=== PATIENT | female | born 1950 | race Caucasian/White ===

== ENCOUNTER 2021-12-10 02:44 | Inpatient (IN) ==
[2021-12-10 04:30] LABS: ABS Basophils 0.1 10^3/ul (0-0.2); ABS Lymphocytes 1.5 10^3/ul (1.0-4.8); ABS Monocytes 0.4 10^3/ul (0-0.8); ABS Neutrophils 3.4 10^3/ul (1.5-7.7); Eosinophil % 0.5 %; Hematocrit 47 % (35-47); Lymphocyte % 27.3 %; Mean Corpuscular HGB Conc 34 g/dL (31-36); Mean Corpuscular Hemoglobin 32 pg (27-31); Mean Corpuscular Volume 94 fL (80-97); Mean Platelet Volume 8.1 fL (7.4-10.4); Nucleated Red Blood Cells % 0.1; Platelet Count 200 10^3/uL (150-450); Red Blood Count 5.07 10^6 /uL (3.70-4.87); Red Cell Distribution Width 14 % (10-15); White Blood Count 5.4 10^3/uL (3.5-10.8)
[2021-12-10 04:35] LABS: INR 1.25 (0.89-1.11)
[2021-12-10 04:38] LABS: Urine Appearance Clear; Urine Blood Negative (Negative); Urine Color Yellow; Urine Glucose Trace (100mg/dL) (Negative); Urine Ketones Trace (Negative); Urine Nitrite Negative (Negative); Urine Protein 1+ (30 mg/dL) (Negative); Urine Specific Gravity 1.025 (1.002-1.030); Urine Urobilinogen 0.2 (Negative) (Negative); Urine pH 5.5 (5.0-9.0)
[2021-12-10 04:48] LABS: Urine Benzodiazepine Screen None Detected (None Detect); Urine Cannabinoids Screen None Detected (None Detect); Urine Opiates Screen None Detected (None Detect)
[2021-12-10 04:51] LABS: Urine Bacteria Absent (Absent); Urine Red Blood Cell 1+(3-5/hpf) (Absent); Urine Squamous Epithelial Cell Present (Absent); Urine White Blood Cell Trace(0-5/hpf) (Absent)
[2021-12-10 05:04] LABS: ALT 12 U/L (7-52); AST 13 U/L (13-39); Acetaminophen < 15 mcg/mL; Albumin 4.1 g/dL (3.2-5.2); Albumin/Globulin Ratio 1.5 (1-3); Alcohol, S < 13 mg/dL (<13); Alkaline Phosphatase 58 U/L (35-149); Anion Gap 9 mmol/L (2-11); Blood Urea Nitrogen 26 mg/dL (6-24); CO2 Carbon Dioxide 23 mmol/L (22-32); Calcium 9.4 mg/dL (8.6-10.3); Chloride 107 mmol/L (101-111); Globulin 2.8 g/dL (2-4); Glucose 85 mg/dL (70-100); Magnesium 1.3 mg/dL (1.9-2.7); Potassium 4.1 mmol/L (3.5-5.0); Salicylate < 2.50 mg/dL (<30); Sodium 139 mmol/L (135-145); Total Protein 6.9 g/dL (6.4-8.9); eGFR CKD-EPI 53.7 (>60)
[2021-12-10 05:18] LABS: TSH Ultra Thyroid Stim Horm 4.97 mcIU/mL (0.34-5.60)
[2021-12-10] MEDS ORDERED: NS 0.9% 1000 ml BAG 1,000 ML IV ONE (06:22)
[2021-12-10] MEDS ORDERED: Nicotine GUM 2MG FRUIT FLAVOR PO ONE ×2 (07:44→07:46)
[2021-12-10] MEDS ORDERED: oxyCODONE SR 10 mg TAB PO PRN (11:50)
[2021-12-10 12:52] LABS: Urine Benzodiazepine Screen None Detected (None Detect); Urine Buprenorphine Screen None Detected (None Detect); Urine Cannabinoids Screen None Detected (None Detect); Urine Fentanyl Screen None Detected (None Detect); Urine Hydrocodone Screen None Detected (None Detect); Urine Opiates Screen None Detected (None Detect)
[2021-12-10] MEDS: Albuterol HFA INHALER 8 gm MDI INH PRN (15:28)
[2021-12-10] MEDS: Latanoprost 0.005% 2.5 ml BTL BOTH EYES SCH (21:06)
[2021-12-11 08:33] LABS: HDL Cholesterol 42.8 mg/dL
[2021-12-11] MEDS: Vitamin THERAPEUTIC TAB PO SCH (09:17)
[2021-12-11] MEDS: Nicotine PATCH 21 MG/24 HR PATCH TRANSDERM SCH (09:23)
[2021-12-11] MEDS: Al Hydrox/Mg Hydrox/Simet LIQ 30 ML UDC PO PRN (21:19)
[2021-12-11] MEDS: Latanoprost 0.005% 2.5 ml BTL BOTH EYES SCH (22:41)
[2021-12-12] MEDS: Al Hydrox/Mg Hydrox/Simet LIQ 30 ML UDC PO PRN (03:42)
[2021-12-12] MEDS: Nicotine PATCH 21 MG/24 HR PATCH TRANSDERM SCH (07:34)
[2021-12-12] MEDS: Vitamin THERAPEUTIC TAB PO SCH (07:34)
[2021-12-12 15:44] LABS: Albumin 3.6 g/dL (3.2-5.2); Albumin/Globulin Ratio 1.6 (1-3); Calcium 8.6 mg/dL (8.6-10.3); Globulin 2.2 g/dL (2-4); Potassium 4.5 mmol/L (3.5-5.0); Total Bilirubin 0.5 mg/dL (0.2-1.0); Total Protein 5.8 g/dL (6.4-8.9)
[2021-12-12] MEDS: Nicotine GUM 2MG FRUIT FLAVOR PO PRN (19:51)
[2021-12-12] MEDS: Latanoprost 0.005% 2.5 ml BTL BOTH EYES SCH ×3 (20:32→21:58)
[2021-12-13] MEDS: Nicotine GUM 2MG FRUIT FLAVOR PO PRN ×3 (04:24→15:38)
[2021-12-13] MEDS: Vitamin THERAPEUTIC TAB PO SCH (07:53)
[2021-12-13] MEDS: Nicotine PATCH 21 MG/24 HR PATCH TRANSDERM SCH (07:57)
[2021-12-13] MEDS: Latanoprost 0.005% 2.5 ml BTL BOTH EYES SCH (22:08)
[2021-12-14] MEDS: Nicotine GUM 2MG FRUIT FLAVOR PO PRN ×3 (02:05→16:17)
[2021-12-14] MEDS: Vitamin THERAPEUTIC TAB PO SCH (09:29)
[2021-12-14] MEDS: Nicotine PATCH 21 MG/24 HR PATCH TRANSDERM SCH (09:32)
[2021-12-14] MEDS: Albuterol HFA INHALER 8 gm MDI INH PRN (16:16)
[2021-12-14] MEDS: Latanoprost 0.005% 2.5 ml BTL BOTH EYES SCH (22:20)
[2021-12-15] MEDS: Nicotine GUM 2MG FRUIT FLAVOR PO PRN (05:45)
[2021-12-15] MEDS: Nicotine PATCH 21 MG/24 HR PATCH TRANSDERM SCH (08:34)
[2021-12-15] MEDS: Vitamin THERAPEUTIC TAB PO SCH (08:45)
[2021-12-15] MEDS: Latanoprost 0.005% 2.5 ml BTL BOTH EYES SCH (22:26)
[2021-12-16] MEDS: Nicotine PATCH 21 MG/24 HR PATCH TRANSDERM SCH (07:23)
[2021-12-16] MEDS: Vitamin THERAPEUTIC TAB PO SCH (07:24)
[2021-12-16] MEDS: Latanoprost 0.005% 2.5 ml BTL BOTH EYES SCH (21:05)
[2021-12-17] MEDS: Vitamin THERAPEUTIC TAB PO SCH (07:08)
[2021-12-17] MEDS: Albuterol HFA INHALER 8 gm MDI INH PRN (07:10)
[2021-12-17] MEDS: Nicotine PATCH 21 MG/24 HR PATCH TRANSDERM SCH (07:12)
[2021-12-17 08:35] VITALS: BP 142/69
[2021-12-17] MEDS ORDERED: Nicotine GUM 4MG FRUIT FLAVOR PO ONE (08:42)
[2021-12-17] MEDS ORDERED: Nicotine GUM 4MG FRUIT FLAVOR PO PRN (08:43)
[2021-12-17 09:42] LABS: ALT 10 U/L (7-52); Albumin 3.6 g/dL (3.2-5.2); Albumin/Globulin Ratio 1.7 (1-3); Alkaline Phosphatase 54 U/L (35-149); Blood Urea Nitrogen 38 mg/dL (6-24); CO2 Carbon Dioxide 32 mmol/L (22-32); Calcium 9.2 mg/dL (8.6-10.3); Chloride 103 mmol/L (101-111); Globulin 2.1 g/dL (2-4); Glucose 103 mg/dL (70-100); Lithium 1.06 mmol/L (0.6-1.2); Sodium 140 mmol/L (135-145); Total Protein 5.7 g/dL (6.4-8.9); eGFR CKD-EPI 35.1 (>60)
[2021-12-17 09:47] LABS: Anion Gap 5 mmol/L (2-11)
== END 2021-12-17 12:12 | disposition home health service (06) | DRG 885 ==
LOC: ED 02:44 → EDHOLD 11:45 → BSU 15:34
PROVIDERS: ADMIT Psychiatry & Neurology Psychiatry; ATTEND Psychiatry & Neurology Psychiatry